=== PATIENT | male | born 1995 | race Caucasian/White ===

== ENCOUNTER 2018-08-13 09:45 | Emergency (ER) | payer BC | END 2018-08-13 11:18 | disposition home or self-care (01) | LOC: FTE 11:18 | DX: S62.91XA Unspecified fracture of right hand, initial encounter for closed fracture (principal); W22.01XA Walked into wall, initial encounter; Y92.9 Unspecified place or not applicable | CPT/HCPCS: 29125; 73130-RT; 99283-25 ==